=== PATIENT | male | born 1950 | race Caucasian/White ===

== ENCOUNTER → 2021-01-06 | Outpatient (CLI) | payer MEDICARE, OTHER | LOC: CARD 13:21 | PROVIDERS: ATTEND Internal Medicine Cardiovascular Disease | DX: I11.9 Hypertensive heart disease without heart failure (principal) | CPT/HCPCS: 93306 ==

== ENCOUNTER → 2021-02-24 | Outpatient (CLI) | payer BC ==
[~2021-02-24] VITALS: Ht 180 cm; Wt 104.0 kg
[~2021-02-24] MED LIST: CATHETER FLUSH 10 ML SYR IV PRN; REGADENOSON 0.4 MG/5 ML SYR (LEXISCAN) IV ONE
[2021-02-24 12:52] VITALS: BP 122/74
--- NOTE | 2021-02-25 12:35 | Cardiology Stress Test Report ---
Stress Test Report Date of Procedure/Referring: Date of Procedure: Feb 24, 2021 PCP Bong Barillas MD Admitting Physician Jolynn Lopze DO Indications: HTN Baseline Heart Rate: 87 Baseline Blood Pressure: Blood Pressure Systolic: 122 Blood Pressure Diastolic: 74 Baseline Vitals Vital Signs Date Time Temp Pulse Resp B/P (MAP) Pulse Ox O2 Delivery O2 Flow Rate FiO2 02/24/21 12:52 87 122/74 (90) 98 Baseline EKG: Baseline EKG: NSR Summary After explaining the procedure to the patient, he signed a consent and then brought to the stress nuclear laboratory. Patient received 0.4 mg Lexiscan for stress test, ECG, heart rate and blood pressure were monitored continuously. Resting and stress dose of radio tracer were injected, imaging was acquired and reviewed in short axis, horizontal long axis and vertical long axis views. TID: 1.02 SSS: 0 SDS: 0 EF: 71 1. Patient was scheduled for a treadmill test, was unable to exercise, test was converted to Lexiscan Myoview test. 2. Patient tolerated Lexiscan well 3. No significant ischemia or infarction on SPECT images 4. Normal left ventricular size, EF 71% BONG BARILLAS MD Feb 25, 2021 12:35
== END ==
LOC: CARD 11:30
PROVIDERS: ATTEND Internal Medicine Cardiovascular Disease
DX: I10 Essential (primary) hypertension (principal)
CPT/HCPCS: 78452; 93017; A9502